=== PATIENT | male | born 1965 | race Caucasian/White ===

== ENCOUNTER 2019-02-08 14:12 | Outpatient (CLI) | payer OTHER | END 2019-02-08 14:13 | disposition home or self-care (01) | LOC: SC 14:12 | PROVIDERS: ATTEND Internal Medicine Pulmonary Disease | DX: G47.33 Obstructive sleep apnea (adult) (pediatric) (principal) | CPT/HCPCS: 99203; 99212 ==

== ENCOUNTER 2019-06-29 19:22 | Outpatient (CLI) | payer OTHER | END 2019-06-29 19:23 | disposition home or self-care (01) | LOC: SC 19:22 | PROVIDERS: ATTEND Internal Medicine Pulmonary Disease | DX: G47.33 Obstructive sleep apnea (adult) (pediatric) (principal) | CPT/HCPCS: 95811 ==

== ENCOUNTER 2019-07-13 14:53 | Outpatient (CLI) | payer OTHER ==
--- NOTE | 2019-07-13 16:04 | SLEEP CARE CONSULTATION ---
Information from patient questionnaire entered by Kaykay Reyes. I have reviewed and concur with the information entered by Kaykay Reyes. This document represents the service I personally performed and the decisions made by me, Milvia Hussein MD, [facility]. History of Present Illness Initial [place] Sleepiness Scale score: 9 Current [place] Sleepiness Scale score: 8 Additional HPI information: HPI: Mr. Noble returned for follow up of the split-night sleep study he had on 06/29/2019. The polysomnography shows the following: The quality of the study is good. CPAP was initiated 190.8 minutes into the study and titrated up from 4 cmH2O and titrated up to CPAP at 7 cmH2O. DIAGNOSTIC: The patient had slightly reduced sleep efficiency. The sleep architecture was abnormal for sleep fragmentation and reduced amount of time spent in REM and slow wave sleep (N3). Respiratory monitoring showed severe obstructive sleep apnea-hypopnea (AHI = 46.7) associated with frequent arousals, oxyhemoglobin desaturation and mild hypoxia (trino oxygen saturation of 81%). The respiratory events occurred independently of sleep stage and body position. Snoring was light to loud in intensity. There was no significant periodic limb movement of sleep. THERAPEUTIC: CPAP at 7 cmH2O appeared to be optimal (AHI of 0 per hour on the pressure). There was supine REM sleep on the pressure. Oxygen saturation was normal throughout the night. Lower CPAP settings appeared adequate as well. The patient tolerated positive airway pressure therapy fairly well with the Resp[employer]ics DreamWear Wisp nasal mask. The patients sleep efficiency was reduced due to prolonged awakening at the beginning of CPAP therapy. The sleep architecture was otherwise normal. There was no significant periodic limb movement of sleep. Cardiac rhythm was normal sinus rhythm without significant arrhythmia. No abnormal behavior (parasomnia) observed during the night. The patient was informed of these findings. I explained to him the pathophysiology behind obstructive sleep apnea. We then spent quite a bit of time discussing different treatment options. For mild obstructive sleep apnea, surgery and oral appliance are alternatives to nasal CPAP therapy but in moderate or severe cases, nasal CPAP is the most effective and reliable treatment. Weight loss in an obese individual is strongly recommended. After some discussion, he opted to try CPAP again. He used CPAP long time ago for many years but quit when the pressure was raised. He had a full face mask. Allergies and Home Medications Drug allergies reviewed: Yes Home medication list reviewed: Yes Review of Systems Review of systems same as previous: Yes Physical Exam Weight: 236 lb Impression and Plan IMPRESSION: 1. Obstructive Sleep Apnea-Hypopnea Syndrome, severe, associated with mild hypoxemia and sleep fragmentation. Obviously this is the cause of the patients symptoms of unrefreshed sleep, and excessive daytime sleepiness. As mentioned above, the patient will be started on an autoCPAP set between 4 and 8 cmH2O. I anticipate good treatment compliance. PLAN: 1. Prescription made for an autoCPAP, heated humidifier, and related supplies. 2. Attempt to lose weight and avoid alcohol consumption near bedtime. 3. The patient is again cautioned about driving until his sleepiness completely resolves on the CPAP therapy. 4. Return in six weeks for follow up. I will assess his response and compliance at that time. I spent 100% of this 20 minute visit face to face with the patient with greater than 50% of this was spent time counseling the patient and coordination of care.
== END 2019-07-13 14:54 | disposition home or self-care (01) ==
LOC: SC 14:53
PROVIDERS: ATTEND Internal Medicine Pulmonary Disease
DX: G47.33 Obstructive sleep apnea (adult) (pediatric) (principal)
CPT/HCPCS: 99212; 99213

== ENCOUNTER 2019-12-16 12:10 | Emergency (ER) | payer OTHER ==
--- NOTE | 2019-12-16 12:27 | ED Physician Documentation ---
PD HPI CHEST PAIN - Stated complaint Stated Complaint: CHEST PX - Chief complaint Chief Complaint: Cardiac - History obtained from History obtained from: Patient (54-year-old gentleman with no known history of coronary disease, he does have comorbidities including type 2 diabetes on glipizide and hypertension. For the last 3 days he has had constant but waxing and waning substernal chest pain radiating to the left arm and between the shou lder pains. He had a sweaty episode this morning. He denies shortness of breath or nausea.) Review of Systems Ten Systems: 10 systems reviewed and negative Constitutional: denies: Fever, Chills Throat: denies: Dental pain / toothache Cardiac: reports: Chest pain / pressure. denies: Palpitations, Pedal edema, Calf pain Respiratory: denies: Dyspnea, Cough GI: denies: Abdominal Pain, Nausea PD PAST MEDICAL HISTORY - Allergies Allergies/Adverse Reactions: Allergies Allergy/AdvReac Type Severity Reaction Status Date / Time aspirin AdvReac Nausea Verified 12/16/19 12:16 PD ED PE NORMAL - Vitals Vital signs reviewed: Yes - General General: Alert and oriented X 3, No acute distress - HEENT HEENT: PERRL, EOMI, Pharynx benign - Neck Neck: Supple, no meningeal sign, No bony TTP - Cardiac Cardiac: RRR, No murmur - Respiratory Respiratory: No respiratory distress, Clear bilaterally - Abdomen Abdomen: Non tender - Back Back: No CVA TTP - Derm Derm: Normal color, Warm and dry - Extremities Extremities: No edema, No calf tenderness / cord - Neuro Neuro: Alert and oriented X 3, Normal speech Results - Vitals Vitals: Vital Signs - 24 hr 12/16/19 12:14 Temperature 36.7 C Heart Rate 90 Respiratory 16 Rate Blood Pressure 120/96 H O2 Saturation 97 Oxygen O2 Source Room air - EKG (time done) 1216 Rate: Rate (enter#) (77) Rhythm: NSR [place]: LAD Ischemia: Q waves (Inferior). No: ST elevation c/w ischemia, ST depression Compare to prior EKG: Old EKG unavailable - Labs Labs: Laboratory Tests 12/16/19 12/16/19 12/16/19 12:25 12:25 12:25 WBC 6.4 RBC 5.63 Hgb 16.4 Hct 48.0 MCV 85.3 MCH 29.1 MCHC 34.2 RDW 12.3 Plt Count 217 MPV 10.3 Neut # (Auto) 3.6 Lymph # (Auto) 2.0 [place] # (Auto) 0.6 Eos # (Auto) 0.1 Baso # (Auto) 0.1 Absolute Nucleated RBC 0.00 Nucleated RBC % 0.0 D-Dimer < 200.0 L Sodium 135 Potassium 3.8 Chloride 99 L Carbon Dioxide 25 Anion Gap 11.0 BUN 20 Creatinine 1.0 Estimated GFR (MDRD) 78 L Glucose 193 H Calcium 10.0 Total Bilirubin 1.0 AST 57 H ALT 94 H Alkaline Phosphatase 27 L Troponin I High Sens Total Protein 7.7 Albumin 4.6 Globulin 3.1 Albumin/Globulin Ratio 1.5 Lipase 43 12/16/19 12:25 WBC RBC Hgb Hct MCV MCH MCHC RDW Plt Count MPV Neut # (Auto) Lymph # (Auto) [place] # (Auto) Eos # (Auto) Baso # (Auto) Absolute Nucleated RBC Nucleated RBC % D-Dimer Sodium Potassium Chloride Carbon Dioxide Anion Gap BUN Creatinine Estimated GFR (MDRD) Glucose Calcium Total Bilirubin AST ALT Alkaline Phosphatase Troponin I High Sens 3.2 Total Protein Albumin Globulin Albumin/Globulin Ratio Lipase - Rads (name of study) 1V CHEST Radiology: EMP read contemporaneously (NORMAL) PD MEDICAL DECISION MAKING - ED course ED course: 54-year-old gentleman with atypical 3 days worth of fairly constant chest pain. Dissection considered given the radiation to the back, that said chest x-ray and d-dimer were negative. Cardiac work-up here negative, discussed the need for follow-up stress testing but I think this can be done as an outpatient. Heart score equals 3 Departure - Departure Disposition: 01 Home, Self Care Clinical Impression: Atypical chest pain Condition: Good Record reviewed to determine appropriate education?: Yes Instructions: ED Chest Pain Atypical Unkn Cause Comments[place]. Return for new or worsening symptoms.
[2019-12-16 12:38] LABS: BASOPHILS # (AUTO) 0.1 10^3/uL (0.0-0.1); BASOPHILS % (AUTO) 0.9 %; EOSINOPHILS # (AUTO) 0.1 10^3/uL (0.0-0.7); EOSINOPHILS % (AUTO) 2.2 %; HGB - HEMOGLOBIN 16.4 g/dL (14.0-18.0); LYMPHOCYTES % (AUTO) 31.1 %; MEAN CORPUSCULAR HEMOGLOBIN 29.1 pg (27.0-31.0); MEAN CORPUSCULAR HGB CONC 34.2 g/dL (32.0-36.0); MEAN CORPUSCULAR VOLUME 85.3 fL (80.0-94.0); MEAN PLATELET VOLUME 10.3 fL (7.4-11.4); MONOCYTES # (AUTO) 0.6 10^3/uL (0.0-1.0); MONOCYTES % (AUTO) 9.1 %; NEUTROPHILS # (AUTO) 3.6 10^3/uL (1.5-6.6); NEUTROPHILS % (AUTO) 56.2 %; PLT - PLATELET COUNT 217 10^3/uL (130-450); RED BLOOD COUNT 5.63 10^6/uL (4.70-6.10); RED CELL DISTRIBUTION WIDTH 12.3 % (12.0-15.0); WHITE BLOOD COUNT 6.4 x10^3/uL (4.8-10.8)
[2019-12-16 12:54] LABS: ALBUMIN 4.6 g/dL (3.2-5.5); ALBUMIN/GLOBULIN RATIO 1.5 (1.0-2.2); TOTAL PROTEIN 7.7 g/dL (6.7-8.2)
--- NOTE | 2019-12-16 13:02 | XRAY Report ---
Reason: chest pain Procedure Date: 12/16/2019 Accession Number: [id number] / [id number] Procedure: XR - Chest 1 View X-Ray CPT Code: 88913 Final Report FULL RESULT: EXAM: CHEST RADIOGRAPHY EXAM DATE: 12/16/2019 12:58 PM. CLINICAL HISTORY: Chest pain. COMPARISON: None. TECHNIQUE: 1 view. FINDINGS: Lungs/Pleura: No focal opacities evident. No pleural effusion. No pneumothorax. Mediastinum: Within exam limitations, the cardiomediastinal contour is normal. Other: None. IMPRESSION: Normal single view chest. RADIA
[2019-12-16 13:45] VITALS: BP 105/71
== END 2019-12-16 13:45 | disposition home or self-care (01) ==
LOC: ED 12:10
DX: R07.89 Other chest pain (principal)
CPT/HCPCS: 71045; 80053; 83690; 84484; 85025; 85379; 93005; 99284